=== PATIENT | female | born 2000 | race Caucasian/White ===

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

== ENCOUNTER 2019-03-29 14:09 | Emergency (ER) | payer MEDICAID ==
[~2019-03-29] VITALS: Ht 157.5 cm; Wt 54.4 kg
--- NOTE | 2019-03-29 14:12 | NUR ---
PT BIBA BLS TO ER BED 02
[2019-03-29 14:15] VITALS: BP 109/65
--- NOTE | 2019-03-29 14:27 | NUR ---
BIBA C/O DIZZINESS X TODAY. ADDS LOWER ABD AND PELVIC PAIN WITH INCREASED VAG BLEED X 3 MONTHS. PATIENT STATES SHE WAS WALKING WHEN SHE FELT NEAR SYNCOPE. BOWEL SOUNDS ACTIVE IN ALL 4 QUADRANTS. ABDOMEN SOFT AND FLAT. PAIN 6/10. STATES SHE USES AN ENTIRE BOX OF TAMPONS IN HALF A MONTH. NEURO INTACT. PUPILS LIONEL. EQUAL ARM INSTRUCTOR TECHNICAL TRAINING. FACIAL SYMMETRY. GCS 15. PT AA0X4. VSS. DENIES SI AT THIS TIME PMH- DEPRESSION, ANXIETY, DM, PREVIOUS SUICIDAL ATTEMPTS, HEART MURMUR
--- NOTE | 2019-03-29 15:17 | NUR ---
DR ASKEW AT BEDSIDE
[2019-03-29] MEDS ORDERED: NACL 0.9% 1,000 ML IV SCH (15:28)
[2019-03-29] MEDS ORDERED: KETOROLAC 30 MG/ML VIAL IVP ONE (15:30)
--- NOTE | 2019-03-29 15:45 | NUR ---
IV INSERTED AND LABS DRAWN BEDSIDE
--- NOTE | 2019-03-29 15:45 | NUR ---
UPON INSERTING IV, PREVIOUS SCARS EVIDENT ON PTS FOREARMS AND WRISTS
--- NOTE | 2019-03-29 15:47 | NUR ---
US AT BEDSIDE
[2019-03-29 16:35] LABS: BASOPHILS # (AUTO) 0.1 K/uL (0.00-0.22); BASOPHILS % (AUTO) 0.6 % (0.0-2.0); EOSINOPHILS # (AUTO) 0.1 K/uL (0-0.4); EOSINOPHILS % (AUTO) 0.9 % (0.0-4.0); HEMATOCRIT 37.4 % (36-48); HEMOGLOBIN 12.1 g/dL (12.0-16.0); LYMPHOCYTES # (AUTO) 2.5 K/uL (2.5-16.5); LYMPHOCYTES % (AUTO) 25.8 % (20.5-51.1); MEAN CORPUSCULAR HEMOGLOBIN 27 pg (27-31); MEAN CORPUSCULAR HGB CONC 32 g/dL (33-37); MEAN CORPUSCULAR VOLUME 84.6 fL (80-94); MONOCYTES # (AUTO) 0.9 K/uL (0.8-1.0); MONOCYTES % (AUTO) 9.4 % (1.7-9.3); NEUTROPHILS # (AUTO) 6.2 K/uL (1.8-7.7); NEUTROPHILS % (AUTO) 63.3 % (42.2-75.2); PLATELET COUNT (AUTO) 284 K/uL (140-450); RED BLOOD CELL COUNT(AUTO) 4.42 MIL/uL (4.20-5.40); RED CELL DISTRIBUTION WIDTH 14.6 % (11.6-13.7); WHITE BLOOD COUNT (AUTO) 9.8 K/uL (4.5-11.0)
--- NOTE | 2019-03-29 16:44 | NUR ---
VSS AT THIS TIME. PT AA0X4
[2019-03-29 16:56] LABS: ANION GAP 15.9 (8-16); CARBON DIOXIDE 24.9 mmol/L (21-32); CREATININE 0.6 mg/dL (0.6-1.3); POTASSIUM 3.8 mmol/L (3.5-5.1)
[2019-03-29 16:57] LABS: PROTHROMBIN TIME 9.7 secs (10.8-13.4)
[2019-03-29 17:12] LABS: ALBUMIN 3.5 g/dL (3.4-5.0); THYROID STIMULATING HORMONE 0.62 uIU/mL (0.34-3.74); TOTAL BILIRUBIN 0.2 mg/dL (0.0-1.0)
--- NOTE | 2019-03-29 17:28 | NUR ---
PATIENT STATES SHE DOES NOT HAVE A PLACE TO STAY. PT GIVEN RESOURCE PACKET WITH A LIST OF SHELTERS AND HOSPITAL PHONE TO MAKE CALLS
--- NOTE | 2019-03-29 17:30 | NUR ---
UPON DISCHARGE, PT VERBALIZED THAT SHE IS HAVING SUICIDAL IDEATION. NO PLAN AT THIS TIME. PT STATES SHE HAS NO PLACE TO STAY TONIGHT. HX OF PREVIOUS SUICIDAL ATTEMPTS
--- NOTE | 2019-03-29 17:40 | NUR ---
PT EXPRESSING THOUGHTS OF SUICIDE. MD AWARE AND TO TALK TO PATIENT.
--- NOTE | 2019-03-29 17:45 | NUR ---
Patient transferred to bed 6 for further care. RN re-evaluating patient at bedside.
--- NOTE | 2019-03-29 17:48 | NUR ---
Dr. Wallace re-evaluating patient at bedside.
--- NOTE | 2019-03-29 17:50 | NUR ---
Telepsychiatry consultation ordered as requested by Dr. Wallace.
--- NOTE | 2019-03-29 17:50 | NUR ---
CHRIS ADJUSTED TO PT CURRENT COMPLAINT AND STATUS.
--- NOTE | 2019-03-29 17:53 | NUR ---
PT PLACED IN BED 6, REPORT GIVEN TO REYES RN, TRANSFER OF CARE
[2019-03-29 18:20] LABS: ACETAMINOPHEN < 0.5 ug/ml (10-30); SALICYLATE < 2.8 mg/dL (2.8-20.0)
--- NOTE | 2019-03-29 18:20 | NUR ---
PT WAS INTEVIEWED BY PSYCHIATRIST VIA VIDEO.
[2019-03-29 18:31] LABS: BARBITURATE, URINE NEG. ng/ml (NEG <=200); BENZODIAZEPINE, URINE NEG. ng/mL (NEG <=200); CANNABINOID, URINE NEG. ng/mL (NEG <=50); COCAINE, URINE NEG. ng/mL (NEG <=300); OPIATE, URINE NEG. ng/mL (NEG <=2000); PHENCYCLIDINE SCREEN,URINE NEG. ng/mL (NEG <=25)
--- NOTE | 2019-03-29 19:19 | NUR ---
TRANSFER OF CARE AND REPORT GIVEN FROM [facility]. PT RESTING IN BED COMFORTABLY. VSS. WILL CONTINUE TO MONITOR.
--- NOTE | 2019-03-29 21:00 | NUR ---
PT RESTING IN BED COMFORTABLY WITH EYES CLOSED. WILL CONTINUE TO MONITOR.
--- NOTE | 2019-03-29 23:00 | NUR ---
PT RESTING IN BED ON SIDE, WITH EYES CLOSED. ALL NEEDS MET AT THIS TIME. WILL CONTINUE TO MONITOR.
[2019-03-30 01:00] VITALS: BP 111/71
--- NOTE | 2019-03-30 01:00 | NUR ---
DISCHARGE PAPERS GIIVEN TO PT. STATES FEELING RELIEFE. VSS. PROVIDED WITH HOMELESS PACKET. PT STATES SHE DOES NOT WITH TO WAIT FOR CHROMIUM PLATER AT THIS TIME. LEFT WITH HER BOYFRIEND FROM ER. INSTRUCTED TO F/U WITH PCP, TO USE THE HOMELESS RESOURCES, AND WHEN TO RETURN TO THE ER. PT VERBALLIZED UNDERSTANDING OF DC INSTRUCTIONS. ALL QEUSTIONS ANSWERE.
== END 2019-03-30 01:00 | disposition home or self-care (01) ==
LOC: MED 14:09
DX: N93.9 Abnormal uterine and vaginal bleeding, unspecified (principal); R42 Dizziness and giddiness; F32.9 Major depressive disorder, single episode, unspecified; F15.10 Other stimulant abuse, uncomplicated; F17.210 Nicotine dependence, cigarettes, uncomplicated; E11.9 Type 2 diabetes mellitus without complications
CPT/HCPCS: 36415; 76830; 80053; 80305; 81002; 81025; 84443; 85025; 85610; 85730; 86886; 86900; 86901; 96361; 96374; 99284; G0480; G0482; J1885; J7030; Q0092